=== PATIENT | female | born 1995 | race Two or more races ===

== ENCOUNTER 2021-11-22 20:36 | Inpatient (IN) | payer OTHER ==
[~2021-11-22] VITALS: Ht 157.5 cm; Wt 72.6 kg
[2021-11-22] MEDS ORDERED: PRENATAL + DHA1 EAC1 (21:40)
[2021-11-22] MEDS ORDERED: IRON236 MG (21:40)
== END 2021-11-24 12:13 | disposition home or self-care (01) | DRG 833 ==
LOC: LDR 20:36 → O/R 11-23 05:00 → LDR 11-23 05:01 → OB/GYN 11-23 10:30
PROVIDERS: ADMIT Obstetrics & Gynecology; ATTEND Obstetrics & Gynecology
PROC: 4A1HXCZ Monitoring of Products of Conception, Cardiac Rate, External Approach (ICD-10-PCS; principal; 2021-11-22)
DX: O47.03 False labor before 37 completed weeks of gestation, third trimester (principal); Z3A.34 34 weeks gestation of pregnancy; Z20.822 Contact with and (suspected) exposure to COVID-19